=== PATIENT | female | born 1950 | race Caucasian/White ===

== ENCOUNTER 2022-01-15 11:46 | Emergency (ER) | payer MEDICARE, OTHER ==
[~2022-01-15] VITALS: Ht 154.9 cm; Wt 73.5 kg
--- NOTE | 2022-01-15 12:00 | NUR ---
Patient seen by physician
[2022-01-15] MEDS ORDERED: METHOCARBAMOL 500 MG TABLET PO ONE (13:00)
[2022-01-15] MEDS ORDERED: LIDOCAINE 5% PATCH TD ONE ×2 (13:00→13:06)
[2022-01-15] MEDS ORDERED: METHOCARBAMOL 500 MG TABLET ONE (13:06)
[2022-01-15] MEDS ORDERED: METH-807 PO (13:53)
[2022-01-15] MEDS ORDERED: LIDO700A30 TP (13:53)
--- NOTE | 2022-01-15 14:33 | NUR ---
at bedside discussing pt's care plan and X-ray results.
--- NOTE | 2022-01-15 14:45 | NUR ---
Patient instructed on the proper use of crutches and left home assited by it son.
[2022-01-19] MEDS ORDERED: CYCL10TA9 PO (11:07)
== END 2022-01-15 14:49 | disposition home or self-care (01) ==
LOC: ER 11:52
DX: I80.02 Phlebitis and thrombophlebitis of superficial vessels of left lower extremity (principal); M25.562 Pain in left knee; Z90.49 Acquired absence of other specified parts of digestive tract; Z91.81 History of falling; I10 Essential (primary) hypertension; E78.5 Hyperlipidemia, unspecified; Z88.1 Allergy status to other antibiotic agents; Z88.2 Allergy status to sulfonamides
CPT/HCPCS: 73610; 73630; A4663